=== PATIENT | male | born 1960 | race Caucasian/White ===

== ENCOUNTER 2020-11-07 10:23 | Inpatient (IN) | payer BC ==
[~2020-11-07] VITALS: Ht 182.9 cm; Wt 91.7 kg
--- NOTE | 2020-11-07 10:26 | NUR ---
[employer]. PT CALLED TO [facility] IN [facility].
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
--- NOTE | 2020-11-07 10:42 | NUR ---
PATIENT BACK IN ROOM, ERMD AT BEDSIDE FOR EVALUATION.
[2020-11-07] MEDS ORDERED: GEMF-31 PO (10:44)
[2020-11-07 11:18] LABS: BASOPHILS % (AUTO) 1 % (0-1); EOSINOPHILS % (AUTO) 3 % (1-7); LYMPHOCYTES % (AUTO) 23 % (22-44); MEAN CORPUSCULAR HEMOGLOBIN 30.5 pg (27.5-34.5); MEAN CORPUSCULAR HGB CONC 34.3 g/dL (33.2-36.2); MEAN PLATELET VOLUME 7.9 fL (7.4-10.4); MONOCYTES % (AUTO) 9 % (2-9); NEUTROPHILS % (AUTO) 63 % (42-75); PLATELET COUNT 240 x10^3/uL (130-400); RED BLOOD COUNT 5.33 x10^6/uL (4.38-5.82); RED CELL DISTRIBUTION WIDTH 14.4 % (9.4-14.8)
[2020-11-07 11:29] LABS: ALBUMIN 3.9 g/dL (3.4-5.0); ANION GAP 10 mmol/L (5-15); CALCIUM 8.9 mg/dL (8.5-10.1); CHLORIDE 111 mmol/L (98-107); CREATININE 0.72 mg/dL (0.7-1.3)
[2020-11-07 11:43] LABS: INTERNATIONAL NORMALIZED RATIO 0.96 (0.93-1.1); PROTHROMBIN TIME 10.3 Seconds (9.6-11.5)
[2020-11-07 12:04] LABS: MD NO
--- NOTE | 2020-11-07 12:07 | NUR ---
PATIENT RESTING IN GUKT, KEVIN, VSS, CALL LIGHT WITHIN REACH. PATIENT UP FOR RECHECK.
--- NOTE | 2020-11-07 12:22 | NUR ---
ERMD AT BEDSIDE TO DISCUSS POC.
--- NOTE | 2020-11-07 12:49 | NUR ---
GI MD AT BEDSIDE TO DISCUSS POC.
[2020-11-07] MEDS ORDERED: PANTOPRAZOLE 80 MG in SODIUM CHLORIDE 0.9% 100 ML IV ONE (13:00)
[2020-11-07] MEDS ORDERED: PANTOPRAZOLE 80 MG in SODIUM CHLORIDE 0.9% 50 ML IVPB ONE (13:00)
[2020-11-07] MEDS ORDERED: SODIUM CHLORIDE FLUSH 10ML SYR IVF ONE (13:00)
--- NOTE | 2020-11-07 13:16 | NUR ---
REPORT RECEICED FROM JANETH WINSLOW. ADMITTING AT BEDSIDE.
--- NOTE | 2020-11-07 13:29 | NUR ---
REPORT GIVEN TO RADHA WINSLOW. MEDICATIONS REQUESTED FROM PHARMACY.
[2020-11-07] MEDS ORDERED: MOVIPREP POWDER 1 PREP KIT PO ONE (13:30)
[2020-11-07] MEDS ORDERED: ONDANSETRON 2MG/ML, 2ML IVPush PRN (13:30)
[2020-11-07] MEDS ORDERED: SODIUM CHLORIDE FLUSH 10ML SYR IVF PRN (13:30)
[2020-11-07] MEDS ORDERED: SODIUM CHLORIDE 0.9% 1,000 ML IV ONE (13:30)
--- NOTE | 2020-11-07 13:58 | NUR ---
IV MEDICATIONS HUNG PER ORDERS. PT OK TO TRANSFER TO FLOOR.
--- NOTE | 2020-11-07 13:58 | NUR ---
REPORT TO EVER WINSLOW.
[2020-11-07] MEDS ORDERED: ACETAMINOPHEN 500 MG TABLET PO PRN (14:00)
[2020-11-07 14:52] VITALS: BP 144/79
[2020-11-07] MEDS: ONDANSETRON ODT 4 MG PO PRN ×2 (16:12→21:38)
[2020-11-07] MEDS: PANTOPRAZOLE 80 MG in SODIUM CHLORIDE 0.9% 100 ML IV SCH (16:12)
[2020-11-07] MEDS: NS + 20MEQ KCL 1,000 ML IV SCH (16:50)
[2020-11-07] MEDS: MORPHINE SULFATE 4 MG/ML, 1ML IVPush PRN ×2 (17:26→21:40)
[2020-11-07 19:33] VITALS: BP 114/79
[2020-11-07] MEDS: ALLOPURINOL 300 MG TABLET PO ONE ×2 (21:22→21:26)
[2020-11-07 22:59] LABS: AMPHETAMINE SCREEN, URINE Negative (Negative); BARBITURATE SCREEN, URINE Negative (Negative); BENZODIAZEPINE SCREEN, URINE Negative (Negative); CANNABINOID SCREEN, URINE Positive (Negative); COCAINE SCREEN, URINE Negative (Negative); METHADONE SCREEN, URINE Negative (Negative); OPIATE SCREEN, URINE Positive (Negative)
[2020-11-08 00:39] VITALS: BP 116/75
[2020-11-08] MEDS: MORPHINE SULFATE 4 MG/ML, 1ML IVPush PRN ×2 (01:50→06:15)
[2020-11-08] MEDS: PANTOPRAZOLE 80 MG in SODIUM CHLORIDE 0.9% 100 ML IV SCH ×3 (01:50→16:25)
[2020-11-08] MEDS: NS + 20MEQ KCL 1,000 ML IV SCH (04:39)
[2020-11-08 06:27] VITALS: BP 112/69
[2020-11-08 07:04] LABS: BASOPHILS % (AUTO) 0 % (0-1); EOSINOPHILS % (AUTO) 1 % (1-7); LYMPHOCYTES % (AUTO) 19 % (22-44); MEAN CORPUSCULAR HEMOGLOBIN 30.6 pg (27.5-34.5); MEAN CORPUSCULAR HGB CONC 33.8 g/dL (33.2-36.2); MEAN PLATELET VOLUME 7.8 fL (7.4-10.4); MONOCYTES % (AUTO) 9 % (2-9); NEUTROPHILS % (AUTO) 71 % (42-75); PLATELET COUNT 231 x10^3/uL (130-400); RED BLOOD COUNT 4.48 x10^6/uL (4.38-5.82); RED CELL DISTRIBUTION WIDTH 14.9 % (9.4-14.8)
[2020-11-08 07:10] LABS: MD NO
[2020-11-08 07:11] LABS: ALANINE AMINOTRANSFERASE 38 U/L (12-78); ALBUMIN 3.4 g/dL (3.4-5.0); ANION GAP 9 mmol/L (5-15); CHLORIDE 111 mmol/L (98-107); CREATININE 0.71 mg/dL (0.7-1.3)
[2020-11-08 07:13] LABS: ALKALINE PHOSPHATASE 75 U/L (45-117); BILIRUBIN,TOTAL 0.5 mg/dL (0.2-1.0); TOTAL PROTEIN 6.2 g/dL (6.4-8.2)
[2020-11-08] MEDS ORDERED: CHLORHEXIDINE 15 ML UDC ONE (08:24)
[2020-11-08] MEDS ORDERED: CHLORHEXIDINE 15 ML UDC MM ONE (08:30)
[2020-11-08] MEDS: ALLOPURINOL 300 MG TABLET PO SCH ×2 (09:00→13:01)
[2020-11-08] MEDS: GEMFIBROZIL 600 MG TABLET PO SCH ×2 (09:00→13:01)
[2020-11-08] MEDS ORDERED: PROPOFOL 50 ML ONE (10:06)
[2020-11-08] MEDS ORDERED: PROPOFOL 10 MG/ML, 20ML ONE ×2 (10:19→10:37)
[2020-11-08] MEDS ORDERED: ACETAMINOPHEN 325 MG TABLET PO PRN (10:30)
[2020-11-08] MEDS ORDERED: PROMETHAZINE 25 MG/ML, 1ML IVPush PRN (10:30)
[2020-11-08] MEDS ORDERED: ONDANSETRON 2MG/ML, 2ML IVPush PRN (10:30)
[2020-11-08] MEDS ORDERED: LABETALOL 5MG/ML, 20ML IV PRN (10:30)
[2020-11-08] MEDS ORDERED: HYDROmorphone 1 MG/ML, 1ML INJ IVPush PRN (10:30)
[2020-11-08] MEDS ORDERED: EPHEDRINE 50 MG/ML, 1ML IVPush PRN (10:30)
[2020-11-08] MEDS ORDERED: OXYcodone 5 MG/5 ML ORAL.SOL UDC PO PRN (10:30)
[2020-11-08] MEDS ORDERED: hydrALAzine 20 MG/ML, 1ML IV PRN (10:30)
[2020-11-08] MEDS ORDERED: TAMS-11 PO (10:35)
[2020-11-08] MEDS ORDERED: ALLO300T PO (10:35)
[2020-11-08] MEDS ORDERED: METH4TAB6 PO (10:35)
[2020-11-08] MEDS ORDERED: FAMO-79 PO (10:35)
[2020-11-08] MEDS ORDERED: COLC0.6T37 PO (10:35)
[2020-11-08] MEDS ORDERED: LOSA1TAB19 PO (10:35)
[2020-11-08] MEDS ORDERED: SUCCINYLCHOLINE 20 MG/ML, 10ML ONE (10:37)
[2020-11-08] MEDS ORDERED: ROCURONIUM 10 MG/ML,10ML ONE (10:37)
[2020-11-08] MEDS ORDERED: CEFOTETAN 2 GM ONE (10:37)
[2020-11-08] MEDS ORDERED: DEXAMETHASONE 4 MG/ML, 5ML ONE (10:37)
[2020-11-08] MEDS ORDERED: ONDANSETRON 2MG/ML, 2ML ONE (10:37)
[2020-11-08] MEDS ORDERED: DIPHENHYDRAMINE 50 MG/ML, 1ML ONE (10:37)
[2020-11-08] MEDS ORDERED: FENTANYL PF 100 MCG/2ML ONE ×2 (10:53→11:26)
[2020-11-08] MEDS: FENTANYL PF 100 MCG/2ML IV PRN ×3 (10:55→11:30)
[2020-11-08] MEDS ORDERED: EPINEPHRINE SYRINGE 0.1 MG/ML, 10ML ONE (11:30)
[2020-11-08] MEDS ORDERED: hydrALAzine 20 MG/ML, 1ML ONE (11:52)
[2020-11-08] MEDS: LOSARTAN 50MG TABLET PO SCH (13:23)
[2020-11-08] MEDS: HYDROCHLOROTHIAZIDE 12.5 MG CAPSULE PO SCH (13:23)
[2020-11-08] MEDS: COLCHICINE 0.6 MG CAPSULE PO SCH (13:23)
[2020-11-08 13:43] VITALS: BP 124/83
[2020-11-08] MEDS: OXYcodone IR 5MG TABLET PO PRN ×2 (16:25→21:15)
[2020-11-08 18:37] VITALS: BP 118/74
[2020-11-08] MEDS: FAMOTIDINE 20 MG TABLET PO SCH (21:14)
[2020-11-09 01:47] VITALS: BP 125/73
[2020-11-09] MEDS: OXYcodone IR 5MG TABLET PO PRN ×2 (02:16→07:00)
[2020-11-09 05:35] LABS: BASOPHILS % (AUTO) 0 % (0-1); EOSINOPHILS % (AUTO) 2 % (1-7); LYMPHOCYTES % (AUTO) 19 % (22-44); MEAN CORPUSCULAR HEMOGLOBIN 30.8 pg (27.5-34.5); MEAN CORPUSCULAR HGB CONC 34.9 g/dL (33.2-36.2); MEAN PLATELET VOLUME 8.1 fL (7.4-10.4); MONOCYTES % (AUTO) 8 % (2-9); NEUTROPHILS % (AUTO) 71 % (42-75); PLATELET COUNT 208 x10^3/uL (130-400); RED BLOOD COUNT 3.63 x10^6/uL (4.38-5.82); RED CELL DISTRIBUTION WIDTH 14.6 % (9.4-14.8)
[2020-11-09 05:37] LABS: ANION GAP 5 mmol/L (5-15); CALCIUM 8.6 mg/dL (8.5-10.1); CHLORIDE 108 mmol/L (98-107)
[2020-11-09 05:38] LABS: CREATININE 0.76 mg/dL (0.7-1.3)
[2020-11-09 05:49] LABS: MD NO
[2020-11-09 06:19] VITALS: BP 117/73
[2020-11-09] MEDS ORDERED: TEMPLATE NON-FORMULARY MED. (Losartan/Hydrochlorothiazide** (Losartan-Hctz 50-12.5 Mg Tab PO SCH (09:00)
[2020-11-09] MEDS ORDERED: ALLOPURINOL 300 MG TABLET PO SCH (09:00)
[2020-11-09] MEDS ORDERED: TAMSULOSIN 0.4 MG CAP.ER.24H PO SCH (09:00)
[2020-11-09] MEDS: GEMFIBROZIL 600 MG TABLET PO SCH (09:05)
[2020-11-09] MEDS: COLCHICINE 0.6 MG CAPSULE PO SCH (09:05)
[2020-11-09] MEDS: LOSARTAN 50MG TABLET PO SCH (09:05)
[2020-11-09] MEDS: FAMOTIDINE 20 MG TABLET PO SCH (09:06)
[2020-11-09] MEDS: HYDROCHLOROTHIAZIDE 12.5 MG CAPSULE PO SCH (09:08)
== END 2020-11-09 13:30 | disposition home or self-care (01) | DRG 378 ==
LOC: ED 11:43 → EDIP 13:11 → 4EST 14:32 → DCLOUNGE 11-09 13:20
PROVIDERS: ADMIT Family Medicine; ATTEND Internal Medicine
PROC: 0DB98ZX Excision of Duodenum, Via Natural or Artificial Opening Endoscopic, Diagnostic (ICD-10-PCS; 2020-11-08)
PROC: 0DB68ZX Excision of Stomach, Via Natural or Artificial Opening Endoscopic, Diagnostic (ICD-10-PCS; 2020-11-08)
PROC: 0DBP8ZZ Excision of Rectum, Via Natural or Artificial Opening Endoscopic (ICD-10-PCS; 2020-11-08)
PROC: 0DBL8ZZ Excision of Transverse Colon, Via Natural or Artificial Opening Endoscopic (ICD-10-PCS; 2020-11-08)
PROC: 0W3P8ZZ Control Bleeding in Gastrointestinal Tract, Via Natural or Artificial Opening Endoscopic (ICD-10-PCS; principal; 2020-11-08 09:30)
DX: K57.91 Diverticulosis of intestine, part unspecified, without perforation or abscess with bleeding (principal); D62 Acute posthemorrhagic anemia; R12 Heartburn; Z20.822 Contact with and (suspected) exposure to COVID-19; E78.00 Pure hypercholesterolemia, unspecified; E78.5 Hyperlipidemia, unspecified; I10 Essential (primary) hypertension; K21.9 Gastro-esophageal reflux disease without esophagitis; K64.9 Unspecified hemorrhoids; K62.1 Rectal polyp; M10.9 Gout, unspecified; Z87.891 Personal history of nicotine dependence; Z90.49 Acquired absence of other specified parts of digestive tract; Z93.3 Colostomy status; Z79.899 Other long term (current) drug therapy
CPT/HCPCS: 36415; 80048; 80053; 80307; 82040; 83735; 84100; 85014; 85018; 85025; 85610; 85730; 86850; 86900; 87635; 88305; 99291; G0378; J1100; J2405; J2704; J3010; J3480; Q0162; A4648; C9113; J0330; J1200; J2270

== ENCOUNTER 2020-11-10 21:22 | Inpatient (IN) | payer BC ==
[~2020-11-10] VITALS: Ht 182.9 cm; Wt 84.7 kg
[~2020-11-10 21:22] MED LIST: ALLO300T PO; COLC0.6T37 PO; FAMO-79 PO; GEMF-31 PO; LOSA1TAB19 PO; METH4TAB6 PO; TAMS-11 PO
[2020-11-10] MEDS ORDERED: MORPHINE SULFATE 4 MG/ML, 1ML ONE (21:55)
[2020-11-10] MEDS ORDERED: ONDANSETRON 2MG/ML, 2ML ONE (21:55)
[2020-11-10] MEDS ORDERED: MORPHINE SULFATE 4 MG/ML, 1ML IVPush ONE (22:00)
[2020-11-10] MEDS ORDERED: ONDANSETRON 2MG/ML, 2ML IVPush ONE (22:00)
[2020-11-10] MEDS ORDERED: SODIUM CHLORIDE FLUSH 10ML SYR IVF ONE (22:00)
[2020-11-10] MEDS ORDERED: SODIUM CHLORIDE 0.9% 1,000ML IVBOLUS ONE (22:00)
--- NOTE | 2020-11-10 22:21 | NUR ---
CC OF GIB, PT WAS D/C FROM HERE YESTERDAY FOR SAME AND TOLD TO COME BACK IF SYMPTOMS RETURN. PT HAS PICTURES OF STOOL FROM TODAY, FIRST PICTURE SHOWED REGULAR FORMED STOOL WITH CLOT, SECOND PICTURE SHOWS LOOSE BM WITH BRIGHT RED COLOR AND SMALL COFFEE GROUND LIKE APPEARANCE. PT STATES PAIN IS THROUGHOUT HIS ABD 5/10.
[2020-11-10 22:23] LABS: BASOPHILS % (AUTO) 1 % (0-1); EOSINOPHILS % (AUTO) 3 % (1-7); LYMPHOCYTES % (AUTO) 30 % (22-44); MEAN CORPUSCULAR HEMOGLOBIN 31.2 pg (27.5-34.5); MEAN PLATELET VOLUME 7.7 fL (7.4-10.4); MONOCYTES % (AUTO) 9 % (2-9); NEUTROPHILS % (AUTO) 57 % (42-75); PLATELET COUNT 241 x10^3/uL (130-400); RED BLOOD COUNT 3.17 x10^6/uL (4.38-5.82); RED CELL DISTRIBUTION WIDTH 14.7 % (9.4-14.8)
[2020-11-10 22:28] LABS: ANION GAP 9 mmol/L (5-15); CALCIUM 8.4 mg/dL (8.5-10.1); CHLORIDE 111 mmol/L (98-107); CREATININE 1.05 mg/dL (0.7-1.3)
[2020-11-10 22:29] LABS: ALANINE AMINOTRANSFERASE 45 U/L (12-78); ALBUMIN 3.3 g/dL (3.4-5.0)
[2020-11-10 22:31] LABS: ALKALINE PHOSPHATASE 77 U/L (45-117); BILIRUBIN,TOTAL 0.2 mg/dL (0.2-1.0); TOTAL PROTEIN 6.6 g/dL (6.4-8.2)
[2020-11-10] MEDS ORDERED: hydrALAzine 20 MG/ML, 1ML IVPush PRN (23:30)
[2020-11-10] MEDS ORDERED: SODIUM CHLORIDE 0.9% 1,000 ML IV ONE (23:30)
--- NOTE | 2020-11-10 23:35 | NUR ---
PT UP TO RESTROOM WITH STEADY GAIT
--- NOTE | 2020-11-10 23:36 | NUR ---
ATTEMPT #1 FOR REPORT. RN TO CALL BACK
--- NOTE | 2020-11-10 23:54 | NUR ---
REPORT GIVEN TO JERMAINE WINSLOW
[2020-11-10 23:55] LABS: MD SCAN
[2020-11-11 00:43] VITALS: BP 168/91
[2020-11-11] MEDS: ESOMEPRAZOLE 40 MG IV IVPush SCH ×2 (01:25→08:42)
[2020-11-11] MEDS: SODIUM CHLORIDE 0.9% 1,000 ML IV SCH ×3 (01:25→19:51)
[2020-11-11] MEDS: morphine SULFATE 10 MG/ML, 1ML IVPush PRN ×4 (01:38→23:14)
[2020-11-11] MEDS ORDERED: FINA5TAB4 PO (01:45)
[2020-11-11 05:26] LABS: BASOPHILS % (AUTO) 1 % (0-1); EOSINOPHILS % (AUTO) 4 % (1-7); LYMPHOCYTES % (AUTO) 35 % (22-44); MEAN CORPUSCULAR HEMOGLOBIN 30.7 pg (27.5-34.5); MEAN CORPUSCULAR HGB CONC 34.1 g/dL (33.2-36.2); MEAN PLATELET VOLUME 7.7 fL (7.4-10.4); MONOCYTES % (AUTO) 10 % (2-9); NEUTROPHILS % (AUTO) 51 % (42-75); PLATELET COUNT 205 x10^3/uL (130-400); RED BLOOD COUNT 2.66 x10^6/uL (4.38-5.82); RED CELL DISTRIBUTION WIDTH 14.6 % (9.4-14.8)
[2020-11-11 05:31] LABS: CHLORIDE 115 mmol/L (98-107)
[2020-11-11 05:39] LABS: ALANINE AMINOTRANSFERASE 38 U/L (12-78); ALBUMIN 2.7 g/dL (3.4-5.0); ALKALINE PHOSPHATASE 57 U/L (45-117); ANION GAP 7 mmol/L (5-15); BILIRUBIN,TOTAL 0.4 mg/dL (0.2-1.0); CALCIUM 7.6 mg/dL (8.5-10.1); CREATININE 0.75 mg/dL (0.7-1.3); TOTAL PROTEIN 5.4 g/dL (6.4-8.2)
[2020-11-11 06:13] LABS: MD SCAN
[2020-11-11 07:17] VITALS: BP 119/74
[2020-11-11] MEDS ORDERED: HYDROmorphone 1 MG/ML, 1ML INJ IVPush PRN (10:00)
[2020-11-11] MEDS ORDERED: LABETALOL 5MG/ML, 20ML IV PRN (10:00)
[2020-11-11] MEDS ORDERED: ACETAMINOPHEN 325 MG TABLET PO PRN (10:00)
[2020-11-11] MEDS ORDERED: hydrALAzine 20 MG/ML, 1ML IV PRN (10:00)
[2020-11-11] MEDS ORDERED: FENTANYL PF 100 MCG/2ML IV PRN (10:00)
[2020-11-11] MEDS ORDERED: ONDANSETRON 2MG/ML, 2ML IVPush PRN (10:00)
[2020-11-11] MEDS ORDERED: morphine SULFATE 10 MG/ML, 1ML IVPush PRN (10:00)
[2020-11-11] MEDS ORDERED: PROMETHAZINE 25 MG/ML, 1ML IVPush PRN (10:00)
[2020-11-11] MEDS: ONDANSETRON 2MG/ML, 2ML IV PRN ×2 (10:04→19:51)
[2020-11-11] MEDS ORDERED: FENTANYL PF 100 MCG/2ML ONE ×2 (10:17→11:19)
[2020-11-11] MEDS ORDERED: MIDAZOLAM 1 MG/ML, 2ML ONE (10:17)
[2020-11-11] MEDS ORDERED: CHLORHEXIDINE 15 ML UDC ONE (10:20)
[2020-11-11] MEDS ORDERED: PROPOFOL 10 MG/ML, 20ML ONE ×2 (10:42→10:58)
[2020-11-11] MEDS: OMEPRAZOLE 20 MG CAPSULE.DR PO SCH (12:08)
[2020-11-11] MEDS: SUCRALFATE 1 GM TABLET PO SCH ×2 (12:08→17:10)
[2020-11-11] MEDS: OXYcodone/APAP 5/325MG TABLET PO PRN ×2 (14:01→20:01)
[2020-11-11 18:36] VITALS: BP 108/64
[2020-11-12 00:32] VITALS: BP 123/75
[2020-11-12] MEDS: SODIUM CHLORIDE 0.9% 1,000 ML IV SCH ×2 (06:00→15:51)
[2020-11-12 06:27] LABS: BASOPHILS % (AUTO) 1 % (0-1); EOSINOPHILS % (AUTO) 5 % (1-7); LYMPHOCYTES % (AUTO) 30 % (22-44); MEAN CORPUSCULAR HEMOGLOBIN 31.1 pg (27.5-34.5); MEAN CORPUSCULAR HGB CONC 34.7 g/dL (33.2-36.2); MEAN PLATELET VOLUME 7.1 fL (7.4-10.4); MONOCYTES % (AUTO) 9 % (2-9); NEUTROPHILS % (AUTO) 56 % (42-75); PLATELET COUNT 254 x10^3/uL (130-400); RED BLOOD COUNT 2.56 x10^6/uL (4.38-5.82); RED CELL DISTRIBUTION WIDTH 14.6 % (9.4-14.8)
[2020-11-12 06:28] LABS: MD NO
[2020-11-12] MEDS: OXYcodone/APAP 5/325MG TABLET PO PRN ×2 (06:31→18:09)
[2020-11-12 06:46] LABS: ANION GAP 8 mmol/L (5-15); CHLORIDE 110 mmol/L (98-107)
[2020-11-12 06:47] LABS: CREATININE 0.69 mg/dL (0.7-1.3)
[2020-11-12 07:07] VITALS: BP 119/73
[2020-11-12] MEDS: HYDROCHLOROTHIAZIDE 12.5 MG CAPSULE PO SCH (09:49)
[2020-11-12] MEDS: LOSARTAN 50MG TABLET PO SCH (09:50)
[2020-11-12] MEDS: SUCRALFATE 1 GM TABLET PO SCH ×3 (09:50→17:04)
[2020-11-12] MEDS: OMEPRAZOLE 20 MG CAPSULE.DR PO SCH (09:51)
[2020-11-12] MEDS: TAMSULOSIN 0.4 MG CAP.ER.24H PO SCH (09:51)
[2020-11-12] MEDS: FINASTERIDE 5 MG TABLET PO SCH (09:51)
[2020-11-12] MEDS: IRON SUCROSE COMPLEX 100MG/5ML IV SCH ×2 (09:52→20:55)
[2020-11-12] MEDS: ONDANSETRON 2MG/ML, 2ML IV PRN ×2 (11:04→21:16)
[2020-11-12] MEDS: morphine SULFATE 10 MG/ML, 1ML IVPush PRN (11:52)
[2020-11-12 13:01] VITALS: BP 129/78
[2020-11-12] MEDS: LORazepam 1MG TABLET PO PRN ×2 (13:43→21:27)
[2020-11-12 18:55] VITALS: BP 112/71
[2020-11-13 00:05] VITALS: BP 129/80
[2020-11-13 02:26] VITALS: BP 124/78
[2020-11-13] MEDS: SODIUM CHLORIDE 0.9% 1,000 ML IV SCH ×3 (02:27→21:26)
[2020-11-13] MEDS: LORazepam 1MG TABLET PO PRN ×3 (02:27→22:32)
[2020-11-13 06:22] LABS: BASOPHILS % (AUTO) 1 % (0-1); EOSINOPHILS % (AUTO) 4 % (1-7); LYMPHOCYTES % (AUTO) 21 % (22-44); MEAN CORPUSCULAR HEMOGLOBIN 30.9 pg (27.5-34.5); MEAN CORPUSCULAR HGB CONC 34.4 g/dL (33.2-36.2); MEAN PLATELET VOLUME 7.1 fL (7.4-10.4); MONOCYTES % (AUTO) 9 % (2-9); NEUTROPHILS % (AUTO) 66 % (42-75); PLATELET COUNT 295 x10^3/uL (130-400); RED BLOOD COUNT 2.59 x10^6/uL (4.38-5.82); RED CELL DISTRIBUTION WIDTH 14.2 % (9.4-14.8)
[2020-11-13 06:30] LABS: CALCIUM 8.1 mg/dL (8.5-10.1); CHLORIDE 109 mmol/L (98-107)
[2020-11-13 06:34] LABS: ANION GAP 7 mmol/L (5-15); CREATININE 0.71 mg/dL (0.7-1.3)
[2020-11-13 06:39] LABS: MD NO
[2020-11-13 06:46] VITALS: BP 129/84
[2020-11-13] MEDS: LOSARTAN 50MG TABLET PO SCH (09:10)
[2020-11-13] MEDS: TAMSULOSIN 0.4 MG CAP.ER.24H PO SCH (09:10)
[2020-11-13] MEDS: IRON SUCROSE COMPLEX 100MG/5ML IV SCH ×2 (09:10→21:20)
[2020-11-13] MEDS: OMEPRAZOLE 20 MG CAPSULE.DR PO SCH (09:10)
[2020-11-13] MEDS: SUCRALFATE 1 GM TABLET PO SCH ×3 (09:11→16:54)
[2020-11-13] MEDS: HYDROCHLOROTHIAZIDE 12.5 MG CAPSULE PO SCH (09:11)
[2020-11-13] MEDS: FINASTERIDE 5 MG TABLET PO SCH (09:11)
[2020-11-13] MEDS: ONDANSETRON 2MG/ML, 2ML IV PRN ×2 (09:20→17:55)
[2020-11-13 13:07] VITALS: BP 101/66
[2020-11-13] MEDS: OXYcodone/APAP 5/325MG TABLET PO PRN ×2 (18:00→23:30)
[2020-11-13 18:45] VITALS: BP 114/71
[2020-11-14 01:01] VITALS: BP 139/89
[2020-11-14 05:49] LABS: MEAN CORPUSCULAR HEMOGLOBIN 31.5 pg (27.5-34.5); MEAN CORPUSCULAR HGB CONC 34.5 g/dL (33.2-36.2); MEAN PLATELET VOLUME 6.9 fL (7.4-10.4); PLATELET COUNT 326 x10^3/uL (130-400); RED BLOOD COUNT 2.49 x10^6/uL (4.38-5.82)
[2020-11-14 05:54] LABS: ANION GAP 4 mmol/L (5-15); CHLORIDE 112 mmol/L (98-107); CREATININE 0.83 mg/dL (0.7-1.3)
[2020-11-14 06:37] LABS: MD YES
[2020-11-14 06:38] VITALS: BP 112/71
[2020-11-14 06:39] LABS: BAND#(MANUAL) 0.05 x10^3/uL; BANDS%(MANUAL) 1 % (0-7); EOS% (MANUAL) 4 % (1-7); LYMPH#(MANUAL) 1.48 x10^3/uL (1-3.4); LYMPHS% (MANUAL) 29 % (22-44); METAMYELOCYTES# (MANUAL) 0.05 x10^3/uL (0-0); METAMYELOCYTES% (MANUAL) 1 % (0-1); MICROCYTOSIS 1+; MONOS#(MANUAL) 0.31 x10^3/uL (0.3-2.7); MONOS% (MANUAL) 6 % (2-9); POLYCHROMASIA 1+; SEG#(MANUAL) 3.01 x10^3/uL (1.8-6.8); SEGS% (MANUAL) 59 % (42-75)
[2020-11-14 06:40] LABS: <PLATELET ESTIMATE> INCREASED; <PLT MORPHOLOGY> NORMAL PLT MORPH
[2020-11-14 06:53] LABS: ABSOLUTE RETICS # 0.217 x10^6/uL (0.5-1.5); RED BLOOD COUNT 2.47 x10^6/uL (4.38-5.82); RETICULOCYTE COUNT % 8.76 % (0.5-1.5)
[2020-11-14] MEDS: SODIUM CHLORIDE 0.9% 1,000 ML IV SCH (08:00)
[2020-11-14] MEDS: IRON SUCROSE COMPLEX 100MG/5ML IV SCH ×2 (08:50→20:31)
[2020-11-14] MEDS: FINASTERIDE 5 MG TABLET PO SCH (08:51)
[2020-11-14] MEDS: OMEPRAZOLE 20 MG CAPSULE.DR PO SCH (08:51)
[2020-11-14] MEDS: SUCRALFATE 1 GM TABLET PO SCH ×3 (08:51→15:56)
[2020-11-14] MEDS: HYDROCHLOROTHIAZIDE 12.5 MG CAPSULE PO SCH (08:51)
[2020-11-14] MEDS: TAMSULOSIN 0.4 MG CAP.ER.24H PO SCH (08:51)
[2020-11-14] MEDS: LOSARTAN 50MG TABLET PO SCH (08:51)
[2020-11-14 12:29] VITALS: BP 137/89
[2020-11-14] MEDS: OXYcodone/APAP 5/325MG TABLET PO PRN ×2 (15:55→23:30)
[2020-11-14 20:10] VITALS: BP 156/63
[2020-11-14 20:28] VITALS: BP 148/75
[2020-11-14] MEDS: ONDANSETRON 2MG/ML, 2ML IV PRN (20:55)
[2020-11-15 00:58] VITALS: BP 128/80
[2020-11-15] MEDS: morphine SULFATE 10 MG/ML, 1ML IVPush PRN (02:30)
[2020-11-15 06:12] LABS: BASOPHILS % (AUTO) 1 % (0-1); EOSINOPHILS % (AUTO) 3 % (1-7); LYMPHOCYTES % (AUTO) 25 % (22-44); MEAN CORPUSCULAR HEMOGLOBIN 31.3 pg (27.5-34.5); MEAN CORPUSCULAR HGB CONC 34.2 g/dL (33.2-36.2); MONOCYTES % (AUTO) 10 % (2-9); NEUTROPHILS % (AUTO) 62 % (42-75); PLATELET COUNT 388 x10^3/uL (130-400); RED BLOOD COUNT 2.89 x10^6/uL (4.38-5.82); RED CELL DISTRIBUTION WIDTH 15.1 % (9.4-14.8)
[2020-11-15 06:20] LABS: CHLORIDE 109 mmol/L (98-107)
[2020-11-15 06:27] LABS: ANION GAP 9 mmol/L (5-15); CALCIUM 8.8 mg/dL (8.5-10.1); CREATININE 0.84 mg/dL (0.7-1.3)
[2020-11-15 06:40] LABS: MD SCAN
[2020-11-15] MEDS: LOSARTAN 50MG TABLET PO SCH (07:46)
[2020-11-15] MEDS: HYDROCHLOROTHIAZIDE 12.5 MG CAPSULE PO SCH (07:46)
[2020-11-15] MEDS: OMEPRAZOLE 20 MG CAPSULE.DR PO SCH (07:46)
[2020-11-15] MEDS: SUCRALFATE 1 GM TABLET PO SCH (07:46)
[2020-11-15] MEDS: TAMSULOSIN 0.4 MG CAP.ER.24H PO SCH (07:46)
[2020-11-15] MEDS: FINASTERIDE 5 MG TABLET PO SCH (07:47)
[2020-11-15 07:50] VITALS: BP 142/84
[2020-11-15] MEDS ORDERED: SENNA/DOCUSATE TABLET PO SCH (08:00)
[2020-11-15] MEDS ORDERED: OMEP-110 PO (08:10)
[2020-11-15] MEDS ORDERED: SUCR1TAB33 PO (08:10)
== END 2020-11-15 09:55 | disposition home or self-care (01) | DRG 378 ==
LOC: ED 21:52 → EDIP 11-11 00:39 → 3N 11-11 00:41 → DCLOUNGE 11-15 09:48
PROVIDERS: ADMIT Internal Medicine; ATTEND Internal Medicine
PROC: 0W3P8ZZ Control Bleeding in Gastrointestinal Tract, Via Natural or Artificial Opening Endoscopic (ICD-10-PCS; principal; 2020-11-11 14:15)
DX: K31.811 Angiodysplasia of stomach and duodenum with bleeding (principal); D62 Acute posthemorrhagic anemia; Z20.822 Contact with and (suspected) exposure to COVID-19; D50.9 Iron deficiency anemia, unspecified; Z83.3 Family history of diabetes mellitus; Z82.49 Family history of ischemic heart disease and other diseases of the circulatory system; Z83.6 Family history of other diseases of the respiratory system; E78.1 Pure hyperglyceridemia; E78.00 Pure hypercholesterolemia, unspecified; I10 Essential (primary) hypertension; F12.90 Cannabis use, unspecified, uncomplicated; K62.1 Rectal polyp; Z90.49 Acquired absence of other specified parts of digestive tract
CPT/HCPCS: 36415; 80048; 80053; 82607; 82728; 83540; 83550; 83735; 84100; 85014; 85018; 85025; 85045; 86850; 86900; 87635; 96374; 96375; 99285; G0378; J1756; J2250; J2405; J2704; J3010; J2270; J7030

== ENCOUNTER 2020-11-18 11:12 | Emergency (ER) | payer BC ==
[~2020-11-18 11:12] MED LIST changes: +FINA5TAB4 PO; +OMEP-110 PO; +SUCR1TAB33 PO
[2020-11-18 11:24] VITALS: BP 112/80
== END 2020-11-18 12:10 | disposition home or self-care (01) ==
LOC: ED 11:29
DX: R10.9 Unspecified abdominal pain (principal); I10 Essential (primary) hypertension; Z76.0 Encounter for issue of repeat prescription; Z87.891 Personal history of nicotine dependence
CPT/HCPCS: 99281

== ENCOUNTER 2020-11-19 13:36 | Emergency (ER) | payer BC ==
[~2020-11-19] VITALS: Ht 182.9 cm; Wt 91.0 kg
--- NOTE | 2020-11-19 15:06 | NUR ---
DIESEL FLEET MECHANIC: PT TO ROOM FROM [facility]
[2020-11-19 16:17] LABS: BASOPHILS % (AUTO) 1 % (0-1); EOSINOPHILS % (AUTO) 3 % (1-7); LYMPHOCYTES % (AUTO) 29 % (22-44); MEAN CORPUSCULAR HEMOGLOBIN 30.9 pg (27.5-34.5); MEAN CORPUSCULAR HGB CONC 33.6 g/dL (33.2-36.2); MEAN PLATELET VOLUME 7.4 fL (7.4-10.4); MONOCYTES % (AUTO) 12 % (2-9); NEUTROPHILS % (AUTO) 56 % (42-75); PLATELET COUNT 335 x10^3/uL (130-400); RED CELL DISTRIBUTION WIDTH 16.5 % (9.4-14.8)
[2020-11-19 16:18] LABS: MD NO
[2020-11-19 16:28] LABS: ALANINE AMINOTRANSFERASE 64 U/L (12-78); ALBUMIN 3.5 g/dL (3.4-5.0); ANION GAP 11 mmol/L (5-15); CALCIUM 8.2 mg/dL (8.5-10.1); CHLORIDE 110 mmol/L (98-107); CREATININE 1.18 mg/dL (0.7-1.3)
[2020-11-19 16:31] LABS: ALKALINE PHOSPHATASE 82 U/L (45-117); BILIRUBIN,TOTAL 0.5 mg/dL (0.2-1.0); TOTAL PROTEIN 6.6 g/dL (6.4-8.2)
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
[2020-11-19 18:24] VITALS: BP 120/66
== END 2020-11-19 18:27 | disposition home or self-care (01) ==
LOC: ED 15:36
DX: K29.00 Acute gastritis without bleeding (principal); D53.9 Nutritional anemia, unspecified
CPT/HCPCS: 36415; 80053; 83690; 85025; 93005; 99284